=== PATIENT | male | born 1980 | race Caucasian/White ===

== ENCOUNTER → 2023-11-24 07:14 | Day surgery (SDC) | payer BC, SELFPAY | LOC: GI 07:14 | PROVIDERS: ATTENDING PHYSICIAN Internal Medicine | DX: Z12.11 Encounter for screening for malignant neoplasm of colon (principal); D12.8 Benign neoplasm of rectum; K63.5 Polyp of colon | CPT/HCPCS: 45385; 45380; 88305 ==